=== PATIENT | male | born 2000 | race Caucasian/White ===

== ENCOUNTER 2020-12-03 10:25 | Emergency (ER) | payer SELFPAY ==
[~2020-12-03] VITALS: Ht 177.8 cm; Wt 66.2 kg
[2020-12-03 10:30] VITALS: BP 121/68
--- NOTE | 2020-12-03 11:24 | NUR ---
Patient discharged to home in stable condition. Written and verbal after care instructions given. Patient verbalizes understanding of instruction.
== END 2020-12-03 11:25 | disposition home or self-care (01) ==
LOC: ER 10:32
DX: S91.011D Laceration without foreign body, right ankle, subsequent encounter (principal); Z60.2 Problems related to living alone; W26.8XXD Contact with other sharp object(s), not elsewhere classified, subsequent encounter